=== PATIENT | female | born 1985 | race Two or more races ===

== ENCOUNTER → 2016-05-10 | Outpatient (CLI) | payer OTHER | END | disposition disaster alternative care site (69) | LOC: GRAD 11:55 | PROC: BU12YZZ Fluoroscopy of Bilateral Fallopian Tubes using Other Contrast (ICD-10-PCS; principal; 2016-05-10) | DX: Z31.41 Encounter for fertility testing (principal) ==

== ENCOUNTER → 2016-07-09 | Outpatient (CLI) | payer OTHER | LOC: GLAB 07-08 11:59 | DX: E28.9 Ovarian dysfunction, unspecified (principal) ==

== ENCOUNTER → 2016-08-01 | Outpatient (CLI) | payer OTHER | END | disposition disaster alternative care site (69) | LOC: GLAB 08:00 | DX: E28.9 Ovarian dysfunction, unspecified (principal) ==

== ENCOUNTER → 2016-08-06 | Outpatient (CLI) | payer OTHER | END | disposition disaster alternative care site (69) | LOC: GLAB 07:46 | DX: E28.9 Ovarian dysfunction, unspecified (principal) ==